=== PATIENT | male | born 1985 | race Caucasian/White ===

== ENCOUNTER 2021-01-29 00:33 | Emergency (ER) | payer MEDICARE, OTHER ==
[~2021-01-29] VITALS: Ht 177.8 cm; Wt 77.6 kg
[2021-01-29] MEDS ORDERED: PALIPERIDONE ER6 MG PO (00:55)
[2021-01-29] MEDS ORDERED: BUPROPION XL300 MG PO (00:55)
[2021-01-29] MEDS ORDERED: TRAZODONE HCL50 MG PO (00:56)
[2021-01-29] MEDS ORDERED: IBUPROFEN200 M1 PO (00:58)
--- NOTE | 2021-01-30 07:17 | EKG ---
[facility] [address] [facility] [place] [address] Signed Normal sinus rhythm Normal ECG No previous ECGs available Confirmed by ERNESTO HOYT MD ([id number] on 01/30/2021 7:17:02 AM Electronically Signed By: ERNESTO HOYT MD 01/30/21 07 PATIENT NAME: AKBARKELLEYLINN OLMOS Electrocardiogram DATE OF : 81 PHYSICIAN: ERNESTO HOYT MD REPORT #: [id number] REPORT IS CONFIDENTIAL AND NOT TO BE RELEASED WITHOUT AUTHORIZATION
== END 2021-01-29 11:20 | disposition short-term general hospital (02) ==
LOC: ED 00:33
DX: R45.851 Suicidal ideations (principal); Z20.822 Contact with and (suspected) exposure to COVID-19; F17.200 Nicotine dependence, unspecified, uncomplicated; Z88.2 Allergy status to sulfonamides; Z88.1 Allergy status to other antibiotic agents; Z88.8 Allergy status to other drugs, medicaments and biological substances; Z79.899 Other long term (current) drug therapy
CPT/HCPCS: 80053; 81001; 84443; 85025; 93005; 93010; 99285-25; C9803; G0480; U0003